=== PATIENT | male | born 1950 | race Caucasian/White ===

== ENCOUNTER 2023-11-20 05:18 | Inpatient (IN) | payer MEDICARE, OTHER, SELFPAY ==
[2023-11-20] VITALS (14 sets, daily range): BP systolic 152–230; BP diastolic 79–115; PULSE 60–80; RESP 12–24; TEMP 36.2–36.9; O2SAT 94–99; BMI 23.8
--- NOTE | 2023-11-20 05:32 | EKG_ITS ---
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
--- NOTE | 2023-11-20 05:47 | ED_ITS ---
HPI - Neuro Symptoms/Deficit General Stated Complaint: Possible Stroke Time Seen by Provider: 11/20/23 05:19 History of Present Illness HPI Narrative: 73-year-old male with history of hypertension presents by private vehicle from home for stroke-like symptoms. Patient noticed around 9:00 a.m. yesterday that he had some clumsiness and weakness of his right upper and lower extremities. Patient was seen at [facility] emergency department less than 12 hours ago, where he underwent CT brain imaging, CT angio head and neck imaging, full panel of laboratory work performed. He was offered admission, but informed that he had not have an MRI until at least Tuesday morning. Patient elected to go home with a daily aspirin, he declined a statin due to fear of side effects. At home patient noticed that his symptoms seem to be worsening again and so he came to [facility] to see if workup would be any different. He continues to have clumsiness in his right arm and right lower extremity. He states he feels like he may have a slight slurred in his speech. Exam Initial Vital Signs Initial Vital Signs: Const: Awake, alert, no acute distress, nontoxic appearing Cardiac: regular rate, regular rhythm RESP: unlabored, clear bilaterally, no wheezing GI: Soft, nontender, nondistended Skin: Warm, Dry, intact, no rashes Neuro: AO x3, mild right-sided facial droop, right upper extremity drift, does not touch bed, right lower extremity drift, does not touch bed, no ataxia, trace slur of speech. NIH 4 Course Orders Ordered: ED Orders 11/20/23 05:27 EKG-12 Lead Stat 11/20/23 05:40 CBC Auto Diff [Complete Blood Count AUTO DIFF] Stat CMP [Comprehensive Metabolic Panel] Stat PT [Prothrombin Time INR] Stat TSH [Thyroid Stimulating Hormone] Stat Discontinued Medications Aspirin (Aspirin Ec 325 Mg Tablet) 325 mg PO NOW ONE Stop: 11/20/23 05:34 MDM - Neuro Symptoms/Deficit Differential Diagnosis Differential diagnosis: Likely peripheral neuropathy, cerebrovascular accident and multiple sclerosis Lab Data 11/20/23 05:40 11/20/23 05:40 Labs: Lab Results 11/20/23 Range/Units 05:40 WBC 7.3 (4.5-11.0) X10^3/uL RBC 4.82 (4.5-5.9) X10^6/uL Hgb 15.6 (13.5-17.5) g/dL Hct 45.4 (41-53) % MCV 94.3 (80-100) fL MCH 32.3 (26-34) PG MCHC 34.3 (30-36) % RDW 13.2 (11.6-14.8) % Plt Count 349 (150-400) X10^3/uL Neut % (Auto) 73.1 (50-75) % Lymph % (Auto) 18.2 L (25-40) % [place] % (Auto) 6.8 (3-14) % Eos % (Auto) 1.3 L (2-4) % Baso % (Auto) 0.6 (0-2) % Neut # (Auto) 5400 (3442-9247) /uL Lymph # (Auto) 1300 (1102-2866) /uL [place] # (Auto) 500 (0-900) /uL Eos # (Auto) 100 (0-450) /uL Baso # (Auto) 0 (0-100) /uL PT 11.4 (9.4-12.5) SECONDS INR 1.0 (0.9-1.3) Sodium 133 L (137-145) mmol/L Potassium 3.4 (3.4-5.1) mmol/L Chloride 97 L (98-107) mmol/L Carbon Dioxide 29 (22-32) mmol/L BUN 15 (9-20) mg/dL Creatinine 0.65 L (0.66-1.25) mg/dL Estimated GFR > 60 (>60) mL/min BUN/Creatinine Ratio 23.1 H (6-22) Glucose 125 H (80-110) mg/dL Calcium 9.5 (8.4-10.2) mg/dL Total Bilirubin 0.6 (0.2-1.3) mg/dL AST 27 (17-59) IU/L ALT 19 (<50) IU/L Alkaline Phosphatase 68 (38-126) U/L Total Protein 8.5 H (6.3-8.2) g/dL Albumin 4.9 (3.5-5.0) g/dL Globulin 3.6 (1.7-4.1) g/dL Albumin/Globulin Ratio 1.4 (1.0-2.8) TSH 1.44 (0.47-4.68) uIU/mL ECG Data Interpretation: Normal sinus rhythm at 81 beats per minute. Normal MO, no ST T wave changes, no STEMI MDM Narrative Medical decision making narrative: Patient presenting for repeat evaluation after likely undergoing CVA. Less than 12 hours ago patient underwent CT brain and CT angio imaging at [facility], which shares our PACS system. He took aspirin yesterday but none today, and so a full-dose aspirin was ordered. Patient accepted for observation at this time. Blood pressure elevated, but less than 220/110. We will allow for permissive hypertension in setting of possible acute CVA Discharge Plan Departure Patient Disposition: Admitted as Observation Clinical Impression: Acute right-sided weakness Admit Date/Time: 11/20/23 06:45 Admit Provider: Cipriano Ballard
[2023-11-20 05:48] LABS: Add Manual Diff / Slide Review NO; Basophils Absolute Auto 0 /uL (0-100); Basophils Percent Auto 0.6 % (0-2); Eosinophils Absolute Auto 100 /uL (0-450); Eosinophils Percent Auto 1.3 % (2-4); Hematocrit 45.4 % (41-53); Hemoglobin 15.6 g/dL (13.5-17.5); Lymphocytes Absolute Auto 1300 /uL (1100-4500); Lymphocytes Percent Auto 18.2 % (25-40); Mean Corpuscular HGB Conc 34.3 % (30-36); Mean Corpuscular Hemoglobin 32.3 PG (26-34); Mean Corpuscular Volume 94.3 fL (80-100); Monocytes Absolute Auto 500 /uL (0-900); Monocytes Percent Auto 6.8 % (3-14); Neutrophils Absolute Auto 5400 /uL (1500-7000); Neutrophils Percent Auto 73.1 % (50-75); Platelet Count 349 X10^3/uL (150-400); Red Blood Cell Count 4.82 X10^6/uL (4.5-5.9); Red Cell Distribution Width 13.2 % (11.6-14.8); White Blood Cell Count 7.3 X10^3/uL (4.5-11.0)
[2023-11-20 05:59] LABS: Prothrombin Time 11.4 SECONDS (9.4-12.5)
[2023-11-20 06:05] LABS: Alanine Aminotransferase 19 IU/L (<50); Albumin 4.9 g/dL (3.5-5.0); Albumin Globulin Ratio 1.4 (1.0-2.8); Alkaline Phosphatase 68 U/L (38-126); Aspartate Aminotransferase 27 IU/L (17-59); BUN Creatinine Ratio 23.1 (6-22); Bilirubin Total 0.6 mg/dL (0.2-1.3); Blood Urea Nitrogen 15 mg/dL (9-20); Calcium 9.5 mg/dL (8.4-10.2); Carbon Dioxide 29 mmol/L (22-32); Chloride 97 mmol/L (98-107); Estimated Glomerular Filt Rate > 60 mL/min (>60); Globulin 3.6 g/dL (1.7-4.1); Glucose 125 mg/dL (80-110); HEMOLYSIS < 15 (0-50); Potassium 3.4 mmol/L (3.4-5.1); Sodium 133 mmol/L (137-145); Total Protein 8.5 g/dL (6.3-8.2)
[2023-11-20 06:45] LABS: Thyroid Stimulating Hormone 1.44 uIU/mL (0.47-4.68)
--- NOTE | 2023-11-20 06:57 | DI.ECHO.S_ITS ---
[facility] : : [address] : : [place] : : [id number] : : Phone: [phone] Echocardiogram Report + + :Name: PHU ORANTES Study Date: 11/20/2023 Height: 62 in : [facility] : Weight: 126 lb : : Gender: Male BSA: 1.6 m2 : :: 1950 Age: 73 yrs BP: 172/103 mmHg: :Reason For Study: SUSPECTED STROKE : :Ordering Physician: : :Urmila SONGformed By: Arvind Junior : :MD : :Referring: UNSPECIFIED : + + Interpretation Summary The patient was in sinus rhythm with heart rates between 68-80 bpm during the exam. The left ventricle is normal in size and wall thickness. The left ventricular ejection fraction is normal. The ejection fraction is estimated to be 60-65%. The right ventricle is normal size. The right ventricular systolic function is normal. No significant valvular pathology seen. The IVC is of normal diameter and collapses greater than 50% with a sniff. This suggests a low right atrial pressure of 3 mm Hg. Procedure: A two-dimensional transthoracic echocardiogram with color flow and Doppler was performed. The study quality was technically adequate. There is no prior echocardiogram noted for this patient. The patient was in sinus rhythm with heart rates between 68-80 bpm during the exam. Left Ventricle: The left ventricle is normal in size and wall thickness. There is no thrombus. The ejection fraction is estimated to be 60-65%. The left ventricular ejection fraction is normal. There are no focal wall motion abnormalities. Diastolic parameters suggest a relaxation abnormality of the left ventricle, consistent with probable normal filling pressures. Right Ventricle: The right ventricle is normal size. The right ventricular systolic function is normal. Atria: The left atrial size is normal. Right atrial size is normal. The interatrial septum grossly appears intact with no obvious evidence for an atrial septal defect. Mitral Valve: There is mild mitral annular calcification. There is systolic anterior motion of the chordal apparatus. There is no mitral valve stenosis. There is trace mitral regurgitation. Aortic Valve: The aortic valve is grossly normal. The aortic valve is mildly calcified. The aortic valve is trileaflet. There is no aortic valve stenosis. There is trace aortic regurgitation. Tricuspid Valve: The tricuspid valve is normal. There is no tricuspid stenosis. There is trace tricuspid regurgitation. The right ventricular systolic pressure is estimated to be at least 22 mmHg based on an estimated right atrial pressure of 3 mm Hg. Pulmonic Valve: The pulmonic valve is not well visualized. There is no pulmonic valvular stenosis. There is no pulmonic valvular regurgitation. Great Vessels: The aortic root is normal size. The ascending aorta could not be visualized. The IVC is of normal diameter and collapses greater than 50% with a sniff. This suggests a low right atrial pressure of 3 mm Hg. Pericardium/ Pleura There is no pericardial effusion. There is no pleural effusion. MMode/2D Measurements & Calculations LVIDd: 3.9 cm LVOT diam: 1.9 cm LVIDs: 2.2 cm Ao root diam: 3.2 cm FS: 43.8 % Ao Arch Diam (Prox Trans): 2.4 cm IVSd: 1.1 cm LVPWd: 0.95 cm LV kimball. diameter/BSA (cm/m^2): 2.5 LV sys. diameter/BSA (cm/m^2): 1.4 LA A2 area: 11.0 cm2 RA long axis: 4.4 cm LA A4 area: 11.3 cm2 RA area: 12.9 cm2 LA length (vol): 4.4 cm RA vol: 32.4 ml LA vol: 24.1 ml RA : 20.6 ml/m2 LA vol index: 15.4 ml/m2 IVC diam: 1.4 cm RVD1 (basal): 3.4 cm RVD2 (mid): 3.2 cm TAPSE: 2.9 cm Doppler Measurements & Calculations Ao V2 max: 103.3 cm/sec LVOT Max Memo: 83.7 cm/sec Ao V2 mean: 70.4 cm/sec LV V1 max P.8 mmHg Ao max P.3 mmHg LV V1 VTI: 17.0 cm Ao mean P.2 mmHg JORDAN(I,D): 2.4 cm2 Ao V2 VTI: 20.1 cm JORDAN(V,D): 2.3 cm2 sev ratio: 0.85 JORDAN indexed to BSA (cm^2/m^2): 1.5 MV E max memo: 56.2 cm/sec TR max memo: 215.8 cm/sec MV A max memo: 74.7 cm/sec TR max P.6 mmHg MV E/A: 0.75 PA V2 max: 81.8 cm/sec Med Peak E' Memo: 6.6 cm/sec PA V2 mean: 56.0 cm/sec E/E' med: 8.5 PA mean P.4 mmHg Lat Peak E' Memo: 9.9 cm/sec PA pr(Accel): 17.3 mmHg E/E' lat: 5.7 E/e' average: 7.1 MV dec time: 0.22 sec SV(LVOT): 48.5 ml Reading Physician:12:12 PM
--- NOTE | 2023-11-20 06:57 | DI.MRI.S_ITS ---
PROCEDURE: MR HEAD/BRAIN WO CON INDICATIONS: cva TECHNIQUE: Non-contrast axial T1 spin echo, axial T2 fast spin echo, sagittal and axial FLAIR, coronal T2 fast spin echo, axial gradient echo, axial diffusion and ADC through the brain. COMPARISON: None. FINDINGS: Image quality: Excellent. CSF spaces: Ventricles appear symmetric in size and shape. Basal cisterns are patent. No extra-axial fluid collections. Brain: Small area of diffusion restriction is seen at the posterior left basal ganglia and to periventricular region. No significant mass effect. No hemorrhagic conversion is seen. No other focus of abnormal diffusion restriction is seen. There is cerebral volume loss for age. There are periventricular and deep white matter chronic small vessel ischemic changes. Brainstem appears normal. Skull and face: Calvarial bone marrow is normal in signal. Orbits are normal. Sinuses: There is mucosal thickening and partial opacification of the bilateral ethmoid air cells and right frontal sinus. Mucous retention cysts are seen in the maxillary sinuses. No significant mastoid effusion. IMPRESSION: 1. Small area diffusion restriction in the left posterior basal ganglia/periventricular region is consistent with recent infarct. No significant mass effect or hemorrhagic conversion. 2. [id number]-tr-[id number] chronic likely vascular ischemic changes and generalized parenchymal volume loss. Approved by: Avery Ren M.D. on 11/20/2023 at 8:06
--- NOTE | 2023-11-20 07:21 | PM.HP.1 ---
History of Present Illness History of Present Illness Date Patient Seen: 11/20/23 Time Patient Seen: 07:00 Chief complaint: Possible Stroke Narrative: 73 y/o with PMH of HTN, developed sudden onset of rigt arm and leg weakness, 12 hours ago, went to [facility], had non-diagnostic CT head and discharged home but contiue to have right side numb and weak again. At presentation to ED at [place] he has right facial droop , right arm > Rt leg weakness. Placed in observation [facility] Social History Smoking Status: Never smoker Review of Systems Constitutional Comments: no fever or chills Eyes Comments: w/o vision changes Cardiovascular Comments: w/o palpitations or chest pain Respiratory Comments: w/o cough or shortness of breath Gastrointestinal Comments: w/o complaints Neurologic Comments: Right arm, right leg weakness, slurred speech Exam Vital Signs (past 8 hours): - 11/20/23 06:51 Oxygen Delivery Method Room Air Oxygen Delivery Method Room Air Const Other: sitting in bed in no distress, family at bedside HENMT Other: normocephalic Eyes Other: reactive pupils, EOMI Neck Other: supple Resp Other: normal respiratory effort Cardio Other: RRR GI Other: w/o abdominal distension Skin Other: w/o rashes Neuro Other: Rt hemiparesis, dysarthria, facial drrop Extrem Other: w/o swelling Psych Other: lucid Objective Labs 11/20/23 05:40 11/20/23 05:40 Labs: Laboratory Results - last 24 hr 11/20/23 05:40 WBC 7.3 RBC 4.82 Hgb 15.6 Hct 45.4 MCV 94.3 MCH 32.3 MCHC 34.3 RDW 13.2 Plt Count 349 Neut % (Auto) 73.1 Lymph % (Auto) 18.2 L [place] % (Auto) 6.8 Eos % (Auto) 1.3 L Baso % (Auto) 0.6 Neut # (Auto) 5400 Lymph # (Auto) 1300 [place] # (Auto) 500 Eos # (Auto) 100 Baso # (Auto) 0 PT 11.4 INR 1.0 Sodium 133 L Potassium 3.4 Chloride 97 L Carbon Dioxide 29 BUN 15 Creatinine 0.65 L Estimated GFR > 60 BUN/Creatinine Ratio 23.1 H Glucose 125 H Calcium 9.5 Total Bilirubin 0.6 AST 27 ALT 19 Alkaline Phosphatase 68 Total Protein 8.5 H Albumin 4.9 Globulin 3.6 Albumin/Globulin Ratio 1.4 TSH 1.44 Assessment & Plan Assessment and plan (1) TIA (transient ischemic attack): Status: Acute (2) HTN (hypertension): Status: Acute Assessment & Plan narrative: TIA vs CVA - MRI pending - echocardiogram pending - A1c, lipids, Mg pending - NS at 100 cc/h, hold Lisinopril/HCTZ for permissive HTN - telemetry monitoring - PT, OT, ST eval - given ASA HTN - Lisinopril/HCTz 12.5 on hold - NS at 100 for now DVT prophylaxis - Lovenox Time-Based Coding :: [TOTAL MINUTES] spent with patient and on the chart (including review of chart, obtaining history, exam, reviewing outside data, placing orders, documenting exam and treatment plan, and counseling patient) on [DATE].
[2023-11-20 08:10] LABS: Add Manual Diff / Slide Review NO; Basophils Absolute Auto 300 /uL (0-100); Basophils Percent Auto 3.3 % (0-2); Eosinophils Absolute Auto 0 /uL (0-450); Eosinophils Percent Auto 0.3 % (2-4); Hematocrit 44.1 % (41-53); Hemoglobin 15.2 g/dL (13.5-17.5); Lymphocytes Absolute Auto 900 /uL (1100-4500); Lymphocytes Percent Auto 9.4 % (25-40); Mean Corpuscular HGB Conc 34.6 % (30-36); Mean Corpuscular Hemoglobin 32.4 PG (26-34); Mean Corpuscular Volume 93.7 fL (80-100); Monocytes Absolute Auto 500 /uL (0-900); Monocytes Percent Auto 5.5 % (3-14); Neutrophils Absolute Auto 7600 /uL (1500-7000); Neutrophils Percent Auto 81.5 % (50-75); Platelet Count 353 X10^3/uL (150-400); Red Cell Distribution Width 13.3 % (11.6-14.8); White Blood Cell Count 9.4 X10^3/uL (4.5-11.0)
[2023-11-20 08:19] LABS: BUN Creatinine Ratio 22.8 (6-22); Blood Urea Nitrogen 13 mg/dL (9-20); Calcium 9.1 mg/dL (8.4-10.2); Carbon Dioxide 27 mmol/L (22-32); Chloride 98 mmol/L (98-107); Estimated Glomerular Filt Rate > 60 mL/min (>60); Glucose 105 mg/dL (80-110); Magnesium 2.1 mg/dL (1.6-2.3); Potassium 3.4 mmol/L (3.4-5.1); Sodium 132 mmol/L (137-145)
--- NOTE | 2023-11-20 08:30 | PC.NURSE ---
Pt states symptoms feel same as earlier.
--- NOTE | 2023-11-20 08:34 | PC.NURSE ---
Pt reports minor 2/10 SMITH on left side and states he has consistent stroke like symptoms since yesterday. Pt states he was seen at another hospital yesterday for same medical concern.
[2023-11-20 08:37] LABS: Hemoglobin A1C% w Est Avg Glu 5.3 % (4.0-6.0)
[2023-11-20 08:38] LABS: HEMOLYSIS 57 (0-50)
--- NOTE | 2023-11-20 08:55 | PC.NURSE ---
Attempted to contact to address ASA ordered prior to shift change and MRI result; no answer.
[2023-11-20] MEDS: SODIUM CHLORIDE 0.9% 1,000 ML 100 ML IV ×2 (09:38→18:25)
[2023-11-20 09:43] LABS: Cholesterol 224 mg/dL (140-199); HDL Cholesterol 83 mg/dL (40-60); LDL Cholesterol Calculated 129 mg/dL (<100); Triglycerides 59 mg/dL (35-150)
--- NOTE | 2023-11-20 10:41 | PC.NURSE ---
PT arrived from ED in wheelchair at 0915, 1x assist on affected (R side) to get into bed. Very hypertensive but otherwise VSS, Dr. Ng aware, q 30min vitals initiated for additional monitoring. A&Ox4, no c/o pain. Weakness and heaviness to R side of body. R arm with slightly decreased sensation, no difference between leg sensation bilaterally. Bowel sounds present, lung sounds CTA. Pt and family at bedside oriented to room and call light. Bed in low position, SCDs on, call light within reach.
[2023-11-20] MEDS: POTASSIUM CHLORIDE 20 MEQ TAB 40 MEQ PO (12:07)
[2023-11-20] MEDS: ENOXAPARIN 40 MG/0.4 ML SYRINGE SUBCUT (12:10)
--- NOTE | 2023-11-20 12:30 | PT.IIE ---
Addendum entered and electronically signed by Alexa Mueller PT 11/21/23 10:10: Duplicate evaluation, issue with doctor assignment after student did eval Addendum entered and electronically signed by Alexa Mueller PT 11/20/23 12:56: PT provides direct superv during SPT assessment Original Note: Current Diagnoses Transient cerebral ischemic attack, unspecified (11/20/23) Essential (primary) hypertension (11/20/23) Physical Therapy Inpatient Evaluation/Re-Eval M1 PT/OT-IP Prior Functional Status Start: 11/20/23 08:27 Freq: NEEDED Status: Active Protocol: Document 11/20/23 10:53 LUANN (Rec: 11/20/23 12:29 LUANN [id number]) Medical Review Prior Functional Status Medical History Reviewed Yes Diet/Fluid Consistency Regular Communication WNL Mobility and Gait Performed all mobility and gait I without AD Activities of Daily Living and IADL's I with all ADL's without AD Social History Household Members spouse Living Arrangements House Number of Floors (Floors) One Floor Number of Stairs To Enter/Railing? 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 PT-IP Subjective Start: 11/20/23 08:27 Freq: NEEDED Status: Active Protocol: Document 11/20/23 10:53 LUANN (Rec: 11/20/23 12:29 LUANN [id number]) Subjective Physical Therapy Visit Type Type Initial Evaluation Visit Start Time 10:53 Visit Stop Time 11:23 Number of MARKET SUPERINTENDENT Visits 0 Physical Therapy Visit Comments Patient Comments Pt was in good spirits and agreeable to PT M4 PT-IP Mobility and Gait Start: 11/20/23 08:27 Freq: NEEDED Status: Active Protocol: Document 11/20/23 10:53 LUANN (Rec: 11/20/23 12:29 LUANN [id number]) PT-Bed Mobility Assessment Rolling Type of Rolling Roll to Left Level of Assist Independent Supine to Sit Supine to Sit Independent Scooting Scooting to Edge of Bed Independent PT-Transfer Assessment Sit to and From Stand Sit to and from Stand Contact Guard Assistance,1 Person Assistance Equipment Transfer Assistive Device Gait Belt,Front Wheeled Walker Orthotic/Prosthetic Devices or Brace: No Transfers Transfer Destination Chair Transfer Technique Ambulation Transfer Ability Level of Assist Minimal Assistance,1 Person Assistance,Use of Upper Extremities Comments Mobility Comments Pt was impulsive with transfer movements. Pt stood up while PT was grabbing FWW. BP was taken on L UE supine: 193/102, 70, seated EOB: 184/103, 82, standin/103, 81. Nsg/MD aware of high BPs in setting of ongoing increased brain perfusion post-stroke. Gait Assessment Gait Gait Assistance Required: Minimum Assistance,1 Person Assist Distance (Feet) 3 Able to Maintain Weight Bearing Status Yes During Gait Assistive Devices Assistive Device Gait Belt,Front Wheeled Walker Orthotic/Prosthetic Devices or Brace: No Gait Deviations General Gait Pattern Ataxic,Decreased Stride Length ,Decreased Feet Clearance, Narrow Based Gait,Step-to Gait Factors Limiting Gait Function Factors Limiting Gait Function Abnormal Tonal Influences, Decreased Activity Tolerance, Decreased Strength,Difficulty Following Directions, Incoordination,Poor Balance, Poor Safety Awareness Comments Gait Comments Pt had unsteadiness with moving using FWW and had lost balance while trying to back up with FWW PT had hand on gait belt to assist. Pt is initially hip hiking with right hip with knee flexion to help clear foot. Longer gait assessment in treatments will show functional foot drop or not, but does appear possible during assessment today. PT-Balance Assessment Sitting Balance and Reactions Static Sitting Balance Ability Normal Dynamic Sitting Balance Ability Good Standing Balance and Reactions Static Standing Balance Ability Good Dynamic Standing Balance Ability Good Device Used FWW M5 PT-IP Objective Assessments Start: 11/20/23 08:27 Freq: NEEDED Status: Active Protocol: Document 11/20/23 10:53 LUANN (Rec: 11/20/23 12:29 LUANN [id number]) Orientation Orientation/Cognition Level of Alertness Alert Orientation Name,Age,Birthday,Month,Date, Year,Day of Week,Place, Situation Language Function Ability No Deficits Noted Safety Awareness Decreased Safety Awareness Memory Description No Deficits Noted Comments Pt answered date incorrectly ( November 23) Gross Range of Motion Upper Extremity ROM Assessment Right Impaired Impairments Right hand appears to rest in flexion and may have decresased finger extension, OT to see pt tomorrow Lower Extremity ROM Assessment Right Impaired Impairments May lack full great toe extension mildly Strength Upper Extremity Strength Assessment Within Functional Limits Shoulder R 4-/5 L 4+/5 Elbow R 4-/5 L 4+/5 Lower Extremity Strength Assessment Within Functional Limits Knee R 4-/5 L 4+/5 Ankle R 4-/5 L 5/5 Comments Strength Comments Pt had global weakness in R U& L extremities, great toe extension left 4+/5 on the left and 4-/5 on the right. Coordination Assessment Gross Coordination Gross Coordination Impaired Assessment Finger to Nose Test Severe Impairment Pronation/Supination Test Severe Impairment Foot Tapping Test Minimal Impairment Heel on Kimball Test Minimal Impairment Coordination Comments Coordination testing is weaker on R>L on all assessment activities Sensation Assessment Sensation Gross Sensation WNL Light Touch Intact Muscle Tone Muscle Tone WNL Yes Other Assessments Other Other Assessments Need more time to assess: initially, right anterior tib appeared less defined than the left M6 PT-IP Treatment Start: 11/20/23 08:27 Freq: NEEDED Status: Active Protocol: Document 11/20/23 10:53 JG (Rec: 11/20/23 12:29 J [id number]) Physical Therapy Treatment Exercises Exercises Ankle Pumps,Straight Leg Raises Education Education Provided Precautions,Safety M7 PT-IP Assessment and Plan Start: 11/20/23 08:27 Freq: NEEDED Status: Active Protocol: Document 11/20/23 10:53 JG (Rec: 11/20/23 12:29 [place] [id number]) PT Summary Assessment and Plan Potential Rehabilitation Potential Excellent Status of Condition at Evaluation Evolving Summary Impairments Strength,Balance,Coordination, Transfers,Gait,Activity Tolerance Progress Towards Goals Progressing Toward Goals Assessment Summary Pt is a 73 y/o male that presents with L basal ganglia infarct. He was I at baseline. Pt has global weakness in R UE/LE and severe coordination deficits with R UE and mild deficits with R LE. Strength impairment is also more noticeable distal right UE compared to LE today. Pt demonstrated facial drooping on R side of face and some slurred speech. Pt is currently hypertensive and 21 mmHg drop in systolic BP with change in positions during PT and diastolic BP stayed about the same throughout treatment. Nsg reports perfusion is a concern post-stroke and so BP not being medically assisted to drop too quickly. Pt had a spouse and family located beside him during treatment today. Ed pt and family in acute vs acute rehab vs SNF vs HH vs OPPT levels of care and rehab and PT recommendation of acute rehab at d/c since pt was I and right-handed at baseline. Goals Transfer Goal Independent,Cane,Front Wheeled Walker Gait Goal Independent,Cane,Front Wheel Walker Gait Distance 95 Other Goals Pt will be able to ascend and desend 2 stairs without AD in order to mimic home set-up with no more than CGA. Pt will perform WNLs on standardized balance test with or without AD to decrease fall risk. Days to Meet Goals 5 Frequency of Treatment Frequency Of Treatment Once a Day Treatment Plan Physical Therapy Treatment Plan Transfer Training,Gait Training,Therapeutic Exercise, Balance Retraining,Discharge Planning,Hot or Cold Pack, Neuromuscular Re-ed, Coordination Retraining Other Recommendations and Next Treatment Focus on gait tolerance, Focus sitting and standing, using FWW, balance activities, UE/LE coordination activities, gait training and stair training Weight Bearing Status Weight Bearing Status Weight Bear as Tolerated Recommendations To Nursing Amount of Assist Needed 1 Person Assist Discharge Recommendations PT Discharge Recommendations Acute Rehab Transportation Needs at Discharge Private Vehicle
--- NOTE | 2023-11-20 12:42 | PM.HP.1 ---
History of Present Illness History of Present Illness Date Patient Seen: 11/20/23 Time Patient Seen: 11:00 Chief complaint: Possible Stroke Narrative: From night doctor: 73 y/o with PMH of HTN, developed sudden onset of rigt arm and leg weakness, 12 hours ago, went to [facility], had non-diagnostic CT head and discharged home but contiue to have right side numb and weak again. At presentation to ED at [place] he has right facial droop , right arm > Rt leg weakness. Placed in observation S: The patient is fairly healthy at baseline other than hypertension. He takes hydrochlorothiazide for this. The patient was admitted with right-sided hemiparesis. An MRI was completed in the emergency department and did reveal a left basal ganglia infarct. The patient was no history of TIA or stroke. He notes his blood pressures are usually between 130 and 140 systolic and under 90 diastolic. He does not take aspirin chronically, and has a great resistance to a statin due to thinks he is heard about these medications causing untoward side effects. He does have mild weakness of the right arm and leg upon transfer to the floor his well as a right-sided facial droop. His speech is normal. He denies a headache. He was hypertensive at 198 over 90. He does not smoke. [facility] Social History household members: spouse Smoking Status: Never smoker alcohol intake: current Meds Home Medications and Allergies Home Medications Medication Instructions Recorded Confirmed Type lisinopril 10 1 tab PO DAILY 11/20/23 11/20/23 History mg-hydrochlorothiazide 12.5 mg tablet Allergies Allergy/AdvReac Type Severity Reaction Status Date / Time No Known Drug Allergies Allergy Verified 11/20/23 08:51 Review of Systems Review of Systems Narrative: All else reviewed and otherwise unremarkable except as noted in the history and physical. Exam Vital Signs (past 8 hours): - 11/20/23 06:51 11/20/23 07:00 11/20/23 07:00 Temperature Pulse Rate 65 Respiratory Rate 20 Blood Pressure 180/88 H Pulse Oximetry 96 Oxygen Delivery Method Room Air Oxygen Flow Rate 11/20/23 08:00 11/20/23 08:03 11/20/23 08:03 Temperature Pulse Rate 69 73 Respiratory Rate 16 20 Blood Pressure 200/96 H Pulse Oximetry 96 98 Oxygen Delivery Method Room Air Oxygen Flow Rate 11/20/23 08:30 11/20/23 08:30 11/20/23 08:58 Temperature Pulse Rate 80 Respiratory Rate 24 Blood Pressure 230/115 H 205/102 H Pulse Oximetry 96 Oxygen Delivery Method Oxygen Flow Rate 11/20/23 08:58 11/20/23 09:15 11/20/23 09:30 Temperature 98.1 F Pulse Rate 74 76 Respiratory Rate 17 16 Blood Pressure 218/113 H Pulse Oximetry 94 97 Oxygen Delivery Method Room Air Oxygen Flow Rate 0 11/20/23 10:00 11/20/23 11:16 Temperature 98.4 F 98.5 F Pulse Rate 72 67 Respiratory Rate 16 12 Blood Pressure 181/97 H 193/102 H Pulse Oximetry 98 97 Oxygen Delivery Method Oxygen Flow Rate 0 0 Oxygen Delivery Method Room Air Oxygen Flow Rate 0 Narrative Exam Narrative: NAD, alert and oriented, fluent speech, calm. Normocephalic skull, EOMI, anicteric sclera, symmetric pupils. Oropharynx unremarkable, no droop. Neck supple, midline trachea, no adenopathy. Lungs clear, normal rate and effort. Heart regular, no murmur gallop or rub. Abdomen is soft, non distended and non tender. Extremities are free of edema. Skin is free of rash or lesions. Joints are not swollen or deformed. Judgment appears to be normal. Right arm and leg are weak at 4+ out of 5. There is a right facial droop. Objective ECG Impression: NSR Imaging MRI Brain:: Radiologist's impression: 1. Small area diffusion restriction in the left posterior basal ganglia/periventricular region is consistent with recent infarct. No significant mass effect or hemorrhagic conversion. 2. Dkew-hb-cediqion chronic likely vascular ischemic changes and generalized parenchymal volume loss Echo: Radiologist's impression: The patient was in sinus rhythm with heart rates between 68-80 bpm during the exam. The left ventricle is normal in size and wall thickness. The left ventricular ejection fraction is normal. The ejection fraction is estimated to be 60-65%. The right ventricle is normal size. The right ventricular systolic function is normal. No significant valvular pathology seen. The IVC is of normal diameter and collapses greater than 50% with a sniff. This suggests a low right atrial pressure of 3 mm Hg. Labs 11/20/23 08:02 07/14/24 08:02 Labs: Laboratory Results - last 24 hr 11/20/23 11/20/23 05:40 08:02 WBC 7.3 9.4 RBC 4.82 4.70 Hgb 15.6 15.2 Hct 45.4 44.1 MCV 94.3 93.7 MCH 32.3 32.4 MCHC 34.3 34.6 RDW 13.2 13.3 Plt Count 349 353 Neut % (Auto) 73.1 81.5 H Lymph % (Auto) 18.2 L 9.4 L [place] % (Auto) 6.8 5.5 Eos % (Auto) 1.3 L 0.3 L Baso % (Auto) 0.6 3.3 H Neut # (Auto) 5400 7600 H Lymph # (Auto) 1300 900 L [place] # (Auto) 500 500 Eos # (Auto) 100 0 Baso # (Auto) 0 300 H PT 11.4 INR 1.0 Sodium 133 L 132 L Potassium 3.4 3.4 Chloride 97 L 98 Carbon Dioxide 29 27 BUN 15 13 Creatinine 0.65 L 0.57 L Estimated GFR > 60 > 60 BUN/Creatinine Ratio 23.1 H 22.8 H Glucose 125 H 105 Hemoglobin A1c 5.3 Calcium 9.5 9.1 Magnesium 2.1 Total Bilirubin 0.6 AST 27 ALT 19 Alkaline Phosphatase 68 Total Protein 8.5 H Albumin 4.9 Globulin 3.6 Albumin/Globulin Ratio 1.4 Triglycerides 59 Cholesterol 224 H LDL Cholesterol, Calc 129 H HDL Cholesterol 83 H TSH 1.44 Assessment & Plan Assessment & Plan narrative: 1. 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 2. Hypertensive urgency, present on admission and active. 3. HLD, present on admission and active. Full code is proxy decision maker. Time-Based Coding :: 40 spent with patient and on the chart (including review of chart, obtaining history, exam, reviewing outside data, placing orders, documenting exam and treatment plan, and counseling patient) on 11/20/2023. Quality VTE Deep Vein Thrombosis/Pulmonary Embolism Present on Admission: No MIPS - Admit I confirm the patient?s Advance Care Plan is present, Code status is documented, Surrogate decision maker is in patient?s record [If Yes, STOP here]: Yes MIPS - Meds 'Current medications' to include all prescriptions, [id number] products, herbals, cannabis/cannabidiol products, and vitamin/mineral/dietary (nutritional) supplements. I have utilized all available resources to obtain, update, or review the patient?s current medications. [If Yes, STOP here]: Yes
--- NOTE | 2023-11-20 15:28 | PT.IIE ---
Addendum entered and electronically signed by Alexa Mueller PT 11/20/23 15:31: PT provides direct superv during SPT assessment Original Note: Current Diagnoses Transient cerebral ischemic attack, unspecified (11/20/23) Essential (primary) hypertension (11/20/23) Physical Therapy Inpatient Evaluation/Re-Eval M1 PT/OT-IP Prior Functional Status Start: 11/20/23 08:27 Freq: NEEDED Status: Active Protocol: Document 11/20/23 10:53 LUANN (Rec: 11/20/23 12:29 LUANN [id number]) Medical Review Prior Functional Status Medical History Reviewed Yes Diet/Fluid Consistency Regular Communication WNL Mobility and Gait Performed all mobility and gait I without AD Activities of Daily Living and IADL's I with all ADL's without AD Social History Household Members spouse Living Arrangements House Number of Floors (Floors) One Floor Number of Stairs To Enter/Railing? 2 Home Environment Standard Height Toilet,Tub/ Shower Employment Status Retired Additional Social History Comment Spouse and others were in room with pt upon PT arrival M2 PT-IP Current Condition Start: 11/20/23 08:27 Freq: NEEDED Status: Active Protocol: Document 11/20/23 10:53 LUANN (Rec: 11/20/23 12:29 LUANN [id number]) Physical Therapy Current Condition Current Condition Evaluation Date 11/20/23 Treatment Diagnosis L posterior basal ganglia/ periventricular infarct M3 PT-IP Subjective Start: 11/20/23 08:27 Freq: NEEDED Status: Active Protocol: Document 11/20/23 10:53 LUANN (Rec: 11/20/23 12:29 [place] [id number]) Subjective Physical Therapy Visit Type Type Initial Evaluation Visit Start Time 10:53 Visit Stop Time 11:23 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 Physical Therapy Visit Comments Patient Comments Pt was in good spirits and agreeable to PT M4 PT-IP Mobility and Gait Start: 11/20/23 08:27 Freq: NEEDED Status: Active Protocol: Document 11/20/23 10:53 LUANN (Rec: 11/20/23 12:29 LUANN [id number]) PT-Bed Mobility Assessment Rolling Type of Rolling Roll to Left Level of Assist Independent Supine to Sit Supine to Sit Independent Scooting Scooting to Edge of Bed Independent PT-Transfer Assessment Sit to and From Stand Sit to and from Stand Contact Guard Assistance,1 Person Assistance Equipment Transfer Assistive Device Gait Belt,Front Wheeled Walker Orthotic/Prosthetic Devices or Brace: No Transfers Transfer Destination Chair Transfer Technique Ambulation Transfer Ability Level of Assist Minimal Assistance,1 Person Assistance,Use of Upper Extremities Comments Mobility Comments Pt was impulsive with transfer movements. Pt stood up while PT was grabbing FWW. BP was taken on L UE supine: 193/102, 70, seated EOB: 184/103, 82, standin/103, 81. Nsg/MD aware of high BPs in setting of ongoing increased brain perfusion post-stroke. Gait Assessment Gait Gait Assistance Required: Minimum Assistance,1 Person Assist Distance (Feet) 3 Able to Maintain Weight Bearing Status Yes During Gait Assistive Devices Assistive Device Gait Belt,Front Wheeled Walker Orthotic/Prosthetic Devices or Brace: No Gait Deviations General Gait Pattern Ataxic,Decreased Stride Length ,Decreased Feet Clearance, Narrow Based Gait,Step-to Gait Factors Limiting Gait Function Factors Limiting Gait Function Abnormal Tonal Influences, Decreased Activity Tolerance, Decreased Strength,Difficulty Following Directions, Incoordination,Poor Balance, Poor Safety Awareness Comments Gait Comments Pt had unsteadiness with moving using FWW and had lost balance while trying to back up with FWW PT had hand on gait belt to assist. Pt is initially hip hiking with right hip with knee flexion to help clear foot. Longer gait assessment in treatments will show functional foot drop or not, but does appear possible during assessment today. PT-Balance Assessment Sitting Balance and Reactions Static Sitting Balance Ability Normal Dynamic Sitting Balance Ability Good Standing Balance and Reactions Static Standing Balance Ability Good Dynamic Standing Balance Ability Good Device Used FWW M5 PT-IP Objective Assessments Start: 11/20/23 08:27 Freq: NEEDED Status: Active Protocol: Document 11/20/23 10:53 [place] (Rec: 11/20/23 12:29 [place] [id number]) Orientation Orientation/Cognition Level of Alertness Alert Orientation Name,Age,Birthday,Month,Date, Year,Day of Week,Place, Situation Language Function Ability No Deficits Noted Safety Awareness Decreased Safety Awareness Memory Description No Deficits Noted Comments Pt answered date incorrectly ( November 23) Gross Range of Motion Upper Extremity ROM Assessment Right Impaired Impairments Right hand appears to rest in flexion and may have decresased finger extension, OT to see pt tomorrow Lower Extremity ROM Assessment Right Impaired Impairments May lack full great toe extension mildly Strength Upper Extremity Strength Assessment Within Functional Limits Shoulder R 4-/5 L 4+/5 Elbow R 4-/5 L 4+/5 Lower Extremity Strength Assessment Within Functional Limits Knee R 4-/5 L 4+/5 Ankle R 4-/5 L 5/5 Comments Strength Comments Pt had global weakness in R U& L extremities, great toe extension left 4+/5 on the left and 4-/5 on the right. Coordination Assessment Gross Coordination Gross Coordination Impaired Assessment Finger to Nose Test Severe Impairment Pronation/Supination Test Severe Impairment Foot Tapping Test Minimal Impairment Heel on Kimball Test Minimal Impairment Coordination Comments Coordination testing is weaker on R>L on all assessment activities Sensation Assessment Sensation Gross Sensation WNL Light Touch Intact Muscle Tone Muscle Tone WNL Yes Other Assessments Other Other Assessments Need more time to assess: initially, right anterior tib appeared less defined than the left M6 PT-IP Treatment Start: 11/20/23 08:27 Freq: NEEDED Status: Active Protocol: Document 11/20/23 10:53 JG (Rec: 11/20/23 12:29 J [id number]) Physical Therapy Treatment Exercises Exercises Ankle Pumps,Straight Leg Raises Education Education Provided Precautions,Safety M7 PT-IP Assessment and Plan Start: 11/20/23 08:27 Freq: NEEDED Status: Active Protocol: Document 11/20/23 10:53 JG (Rec: 11/20/23 12:29 J [id number]) PT Summary Assessment and Plan Potential Rehabilitation Potential Excellent Status of Condition at Evaluation Evolving Summary Impairments Strength,Balance,Coordination, Transfers,Gait,Activity Tolerance Progress Towards Goals Progressing Toward Goals Assessment Summary Pt is a 73 y/o male that presents with L basal ganglia infarct. He was I at baseline. Pt has global weakness in R UE/LE and severe coordination deficits with R UE and mild deficits with R LE. Strength impairment is also more noticeable distal right UE compared to LE today. Pt demonstrated facial drooping on R side of face and some slurred speech. Pt is currently hypertensive and 21 mmHg drop in systolic BP with change in positions during PT and diastolic BP stayed about the same throughout treatment. Nsg reports perfusion is a concern post-stroke and so BP not being medically assisted to drop too quickly. Pt had a spouse and family located beside him during treatment today. Ed pt and family in acute vs acute rehab vs SNF vs HH vs OPPT levels of care and rehab and PT recommendation of acute rehab at d/c since pt was I and right-handed at baseline. Goals Transfer Goal Independent,Cane,Front Wheeled Walker Gait Goal Independent,Cane,Front Wheel Walker Gait Distance 95 Other Goals Pt will be able to ascend and desend 2 stairs without AD in order to mimic home set-up with no more than CGA. Pt will perform WNLs on standardized balance test with or without AD to decrease fall risk. Days to Meet Goals 5 Frequency of Treatment Frequency Of Treatment Once a Day Treatment Plan Physical Therapy Treatment Plan Transfer Training,Gait Training,Therapeutic Exercise, Balance Retraining,Discharge Planning,Hot or Cold Pack, Neuromuscular Re-ed, Coordination Retraining Other Recommendations and Next Treatment Focus on gait tolerance, Focus sitting and standing, using FWW, balance activities, UE/LE coordination activities, gait training and stair training Weight Bearing Status Weight Bearing Status Weight Bear as Tolerated Recommendations To Nursing Amount of Assist Needed 1 Person Assist Discharge Recommendations PT Discharge Recommendations Acute Rehab Transportation Needs at Discharge Private Vehicle
--- NOTE | 2023-11-20 23:52 | PC.NURSE ---
Patient is alert and oriented. Has NIH of 5 related to right UE/LE weakness/numbness, inability to make fist with right hand and ataxia in right UE. Additionally some of his words are slurred. Breath sounds CTA with RA sat of 98%. HRR w/telemetry reading of SR with 1st degree AVB. BP elevated at 152/79 and just rechecked and was 172/95 but is being allowed permissive hypertension. Denied nausea. BT present but hypoactive; states he has a BM every morning after drinking his coffee. Is voiding standing in front of [facility]; assisted to edge of bed with 1 assist + walker due to right extremity weakness. Denied pain. Is wearing bilateral calf SCD's. Fall risk score is high and bed alarm is activated. rooming in.
[2023-11-21 03:00] VITALS: BP 181/96; PULSE 61; RESP 18; TEMP 36.8; O2SAT 97
[2023-11-21] MEDS: SODIUM CHLORIDE 0.9% 1,000 ML 100 ML IV (04:02)
[2023-11-21 06:27] LABS: Blood Urea Nitrogen 10 mg/dL (9-20); Calcium 8.2 mg/dL (8.4-10.2); Carbon Dioxide 26 mmol/L (22-32); Chloride 105 mmol/L (98-107); Estimated Glomerular Filt Rate > 60 mL/min (>60); Glucose 109 mg/dL (80-110); HEMOLYSIS < 15 (0-50); Potassium 3.3 mmol/L (3.4-5.1); Sodium 135 mmol/L (137-145)
[2023-11-21 07:00] VITALS: BP 191/94; PULSE 70; RESP 20; TEMP 36.6; O2SAT 95
--- NOTE | 2023-11-21 07:37 | PM.PN.1 ---
Subjective Subjective Interval history: Right arm is weaker today. The leg is doing better. He still has a droop and a slurred speech. She denies any headache. He was being evaluated for inpatient rehab at [facility]. Exam Vital Signs (past 8 hours): - 11/21/23 03:00 Temperature 98.3 F Pulse Rate 61 Respiratory Rate 18 Blood Pressure 181/96 H Pulse Oximetry 97 Oxygen Flow Rate 0 Oxygen Delivery Method Room Air Oxygen Flow Rate 0 Narrative Exam Narrative: NAD, alert and oriented. Fluent speech. Lungs are clear, normal rate and effort. Heart is regular, no murmur gallop or rub. Abdomen is soft, non distended. Extremities are free of edema. NEURO: Facial droop, slurred speech. Right arm is weak. He can lift it against gravity and up and there at the shoulder but has a hard time flexing and extending at the wrist or elbow. Minimal movement of the hand. He can lift the right leg up straight for approximately 5-7 seconds. Objective Labs 11/20/23 08:02 11/21/23 05:25 Labs: Laboratory Results - last 24 hr 11/20/23 11/20/23 11/21/23 05:40 08:02 05:25 WBC 9.4 RBC 4.70 Hgb 15.2 Hct 44.1 MCV 93.7 MCH 32.4 MCHC 34.6 RDW 13.3 Plt Count 353 Neut % (Auto) 81.5 H Lymph % (Auto) 9.4 L [place] % (Auto) 5.5 Eos % (Auto) 0.3 L Baso % (Auto) 3.3 H Neut # (Auto) 7600 H Lymph # (Auto) 900 L [place] # (Auto) 500 Eos # (Auto) 0 Baso # (Auto) 300 H Sodium 132 L 135 L Potassium 3.4 3.3 L Chloride 98 105 Carbon Dioxide 27 26 BUN 13 10 Creatinine 0.57 L 0.50 L Estimated GFR > 60 > 60 BUN/Creatinine Ratio 22.8 H 20.0 Glucose 105 109 Hemoglobin A1c 5.3 Calcium 9.1 8.2 L Magnesium 2.1 Triglycerides 59 Cholesterol 224 H LDL Cholesterol, Calc 129 H HDL Cholesterol 83 H PFSH Social History household members: spouse Smoking Status: Never smoker alcohol intake: current Assessment & Plan Assessment & Plan narrative: 1. 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 2. Hypertensive urgency, present on admission and active. 3. HLD, present on admission and active. 4. Hypokalemia, new and active. PLAN: -21 days DAPT, Atorvastatin. -PT,OT evaluations. -serial neuro exam. -replace potassium - Referred for inpatient acute rehab at [facility]. Awaiting their evaluation and answer. Full code is proxy decision maker. CITLALLI: 11/21, possibly 11/20. . Time-Based Coding :: 30 min spent with patient and on the chart (including review of chart, obtaining history, exam, reviewing outside data, placing orders, documenting exam and treatment plan, and counseling patient) on 11/20. Quality VTE Deep Vein Thrombosis/Pulmonary Embolism Present on Admission: No
[2023-11-21] MEDS: ENOXAPARIN 40 MG/0.4 ML SYRINGE SUBCUT (09:33)
[2023-11-21] MEDS: POTASSIUM CHLORIDE 20 MEQ TAB 40 MEQ PO (09:34)
[2023-11-21] MEDS: CLOPIDOGREL 75 MG TABLET PO (09:34)
[2023-11-21] MEDS: ASPIRIN EC 81 MG TABLET PO (09:34)
--- NOTE | 2023-11-21 10:32 | OT.IP.EVAL ---
Current Diagnoses Transient cerebral ischemic attack, unspecified (11/20/23) Essential (primary) hypertension (11/20/23) Occupational Therapy Inpatient Evaluation/Re-Eval M1 PT/OT-IP Prior Functional Status Start: 11/20/23 08:27 Freq: NEEDED Status: Active Protocol: Document 11/21/23 10:40 CGR (Rec: 11/21/23 10:56 CGR [id number]) Medical Review Prior Functional Status Medical History Reviewed Yes Diet/Fluid Consistency Regular Communication Pt is an effective verbal communicator. Mobility and Gait Performed all mobility and gait I without AD Activities of Daily Living and IADL's I with all ADL's without AD Social History Household Members spouse Living Arrangements House Number of Floors (Floors) One Floor Number of Stairs To Enter/Railing? 2 steps to enter without railing. Home Environment Standard Height Toilet,Tub/ Shower Employment Status Retired Additional Social History Comment Pt sleeps in a flat bed. Pt has no DME. M2 OT-IP Current Condition Start: 11/21/23 10:40 Freq: Status: Active Protocol: Document 11/21/23 10:40 CGR (Rec: 11/21/23 10:56 CGR [id number]) Occupational Therapy Current Condition Current Condition Evaluation Date 11/21/23 Treatment Diagnosis L CVA with R UE and LE weakness and facial droop. Diagnosis Onset Date 11/20/23 M3 OT- IP Subjective and Pain Start: 11/21/23 10:40 Freq: Status: Active Protocol: Document 11/21/23 10:40 CGR (Rec: 11/21/23 10:56 CGR [id number]) OT- Subjective Occupational Therapy Visit Type Type Initial Evaluation Visit Start Time 09:30 Visit Stop Time 09:45 Notes Rounds at 945 split session. Second half of session 1015- 1032. Occupational Therapy Visit Comments Patient Comments This was such a surprise. OT Pain Assessment Pain When Pain Assessed At Rest Pain Present Pain Present Denied Pain M4 OT- IP ADL's Start: 11/21/23 10:40 Freq: Status: Active Protocol: Document 11/21/23 10:40 CGR (Rec: 11/21/23 10:56 CGR [id number]) OT [id number] Comments OT Self-Feeding Comments not meal time OT ADL-Grooming General Evaluation Grooming Ability Standby Assistance Areas Needing Assistance Face Washing Comments OT Grooming Comments seated in chair OT ADL-Oral Care General Eval Oral Care Ability Standby Assistance Areas of Assistance Brushing Teeth,Retrieving/Set- Up of Items Comments Oral Care Comments with VC on putting the brush down and using his L hand to get toothpaste onto the brush. OT ADL-Dressing General Eval Lower Body Dressing Ability Minimal Assistance Areas Needing Assistance Socks Comments OT Dressing Comments Pt was able to doff socks without assist but needed min a to don socks with difficulty . OT ADL-Toileting Comments OT Toileting Comments not performed OT ADL-Bathing Comments OT Bathing Comments not performed M5 OT- IP IADL's Start: 11/21/23 10:40 Freq: Status: Active Protocol: Document 11/21/23 10:40 CGR (Rec: 11/21/23 10:56 CGR [id number]) OT-Instrumental Activities of Daily Living Deficits IADL Deficits Identified No Deficits Home Safety Awareness Awareness of Need for Assistance at Home Good Awareness Ability to Problem Solve Emergency Able to Problem Solve Situations Medication Management Medication Management No Deficits Identified Money Management Money Management No Deficits Identified Meal Preparation Meal Preparation Caregiver Provides Assist Molding Cutter Molding Cutter Caregiver Provides Assist Driving Driving Comments 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 M6 OT- IP Functional Cognition Start: 11/21/23 10:40 Freq: Status: Active Protocol: Document 11/21/23 10:40 CGR (Rec: 11/21/23 10:56 CGR [id number]) Cognitive Factors Limiting Selfcare Function Cognitive Ability Level of Alertness Alert Patient Orientation Name,Age,Birthday,Month,Date, Year,Day of Week,Place, Situation Attention Span Ability Capable of Focused Attention, Capable of Sustained Attention Ability to Follow Commands Able to Follow Multi-Step Commands Memory Description No Deficits Noted OT- Vision and Hearing OT- Hearing Assessment OT- Hearing Assessment WFL OT- Vision Assessment Visual Acuity WFL,Glasses All The Time Visual Attentiveness WFL Occular Pursuits WFL Visual Convergence WFL Vision Assessment Comments Pt wears trifocals. M7 OT- IP Mobility and Balance Start: 11/21/23 10:40 Freq: Status: Active Protocol: Document 11/21/23 10:40 CGR (Rec: 11/21/23 10:56 CGR [id number]) OT-Transfer Assessment Sit to and From Stand Sit to and from Stand Minimal Assistance Transfers Transfer Ability Minimal Assistance Technique Transfer Destination Chair Transfer Technique Stand Step Pivot Devices Transfer Assistive Devices Gait Belt,Front Wheeled Walker Comments Mobility Comments Pt was able to ambulate ~8 feet, then turn around then 8 feet back. Pt with abnormal gait patterns d/t RLE weakness but good strength for standing. OT- Gait Assessment Gait Gait Assistance Required: Minimum Assistance Distance (Feet) 16 Assistive Devices Assistive Device Gait Belt,Front Wheeled Walker Comments Gait Ability Comments Pt needs some assist to maintain R hand on walker but is able to minimally pipefitter helper. OT- Balance Assessment Sitting Balance and Reactions Static Sitting Balance Ability Normal Dynamic Sitting Balance Ability Normal M8 OT- IP Objective Assessments Start: 11/21/23 10:40 Freq: Status: Active Protocol: Document 11/21/23 10:40 CGR (Rec: 11/21/23 10:56 CGR [id number]) OT Gross Range of Motion Upper Extremity Range of Motion Assessment Within Functional Limits OT Strength Upper Extremity Strength Assessment Right Impaired Comments Strength Comments LUE 5+/5 RUE shld 3/5, arm 3/5, forearm 3/5, wrist fx/ext 3/5, finger fx 3/5, finger ext 2/5 OT- Coordination Assessment Upper Extremity Finger to Nose Test Right UE Impaired Finger Tapping Test Right UE Impaired OT-Muscle Tone Assessment Muscle Tone WNL Yes OT Sensation Assessment Comments Summary Comments sensation normal Edema Edema Absent M9 OT- IP Assessment and Plan Start: 11/21/23 10:40 Freq: Status: Active Protocol: Document 11/21/23 10:40 CGR (Rec: 11/21/23 10:56 CGR [id number]) OT Summary Assessment and Plan Potential Rehabilitation Potential Excellent Analytic Complexity at Evaluation High Summary OT Impairments Strength,Balance,Coordination, Functional Mobility,Self- Feeding,Grooming,Dressing, Toileting,Bathing,Toilet Transfers,Shower Transfers, Activity Tolerance Progress Towards Goals Progressing Toward Goals Assessment Summary Pt presents as a high complexity evaluation s/p admit for new onset L basal ganglia infarct. Pt presents with weakness to the RUE, RLE and R facial droop. Pt appears highly motivated and emotionally stable to work on deficits. Pt is a great candidate for Acute Rehab services. Pt's was present throughout session and is also in agreement on Acute Rehab. Recommend d/c to Acute Rehab. Goals Self-Feeding Goal Independent Grooming Goal Independent Dressing Goal Independent Toileting Goal Independent Bathing Goal Independent Toilet Transfer Goal Independent Shower Transfer Goal Independent Days to Meet Goals 20 Frequency of Treatment Frequency Of Treatment Once a Day Treatment Plan OT Treatment Plan ADL Training,Functional Mobility,Neuromuscular Re- education,Therapeutic Exercises,Patient/Family Education,Discharge Planning Other Treatment Recommendations and Next RUE coordination/strength, Treatment Focus toileting Discharge Recommendations OT Discharge Recommendations Acute Rehab Transportation Needs at Discharge Private Vehicle
[2023-11-21 11:00] VITALS: BP 182/98; PULSE 74; RESP 18; TEMP 36.7; O2SAT 96
--- NOTE | 2023-11-21 12:34 | CM.DANOTE ---
Addendum entered by PETR Benton 11/21/23 16:18: Per Viral at [facility], able to accept pt tuesday. RN report number [phone]. no covid test needed. HIGH PRESSURE BOILER OPERATOR updated provider/RN. HIGH PRESSURE BOILER OPERATOR updated pt and spouse in room. Appreciative of the updates. Spouse can take pt whenever tomorrow. Spouse interested to see if he will have speech. Speech therapy order in, called number, no response. Likely will do eval with next meal. HIGH PRESSURE BOILER OPERATOR reported to pt and spouse. appreciative of update. P: dc tomorrow to [facility], early afternoon. spouse to transport. send clinicals/scripts when available. Original Note: DCP Assessment Note Pt is a 73yo M here following TIA. PCP [facility] HIGH PRESSURE BOILER OPERATOR reviewed EMR. PT/OT rec acute rehab. Hospitalist cleared for dc when acute rehab arranged. HIGH PRESSURE BOILER OPERATOR met with pt and spouse in room briefly. Pt is normally indep/active/otherwise healthy at baseline. In agreement with acute rehab. preference [facility]. spouse can drive pt there. HIGH PRESSURE BOILER OPERATOR answered questions to best of ability. GISELLE Hill sent initial referral information to [facility]. HIGH PRESSURE BOILER OPERATOR sent OT eval when ready. HIGH PRESSURE BOILER OPERATOR spoke with Viral on the phone from [facility]- have been availability pending official acceptance. P: anticipate acceptance at [facility], likely today vs tomorrow. CM team will get COVID test/send dc information when available. PETR Benton Discharge Planning/Care Management CM Discharge Assessment Start: 11/21/23 12:30 Freq: Status: Active Protocol: Document 11/21/23 12:31 (Rec: 11/21/23 12:33 [id number]) Discharge Planning Assessment Assigned Assistant Drafter PETR Ch DPOA/Assigned Designee Name alayna Mosshilaryflakito Contact Information [phone] Advance Directives? Yes Advance Directives on File Yes History Provided By Patient Prior Living Arrangements House Household Members spouse Type of transporation used prior to Drives own vehicle admit Independent with ADL's Yes Is patient alert and oriented? Yes Comment acute rehab Comment pending acceptance at [facility] Transportation Arrangement family in [place]OV Additional Comment [facility] acute rehab reviewing Whiteboard Updated in Patient Room with Yes name and ext. # of Assistant Drafter Review Status In Process Please Provide Date Initial DC 11/21/23 Assessment Was Performed Next Review Type Continued Stay Review
[2023-11-21 15:00] VITALS: BP 186/92; PULSE 64; RESP 16; TEMP 36.6; O2SAT 95
--- NOTE | 2023-11-21 15:47 | PT-IP ANOTE ---
PT checks on pt this afternoon. He is sitting up in chair with washcloth under right fingers. His speech is much more slurred than PT assessment last treatment date. He presents with no active extension in right fingers compared to PT exam last date and OT exam note at 1040 this date. Pt presents with less active movement in right shoulder and elbow and can only lift arm about 60 deg actively. RLE is also much weaker than last date with no active DF or great toe extension and weak hip and knee flexion. Right knee extension is spared and is about 3/5 this afternoon. Increased droop right side of mouth. BP and HR in LUE remain high at 187/97, 73. PT will attempt to talk with attending.
--- NOTE | 2023-11-21 16:04 | DI.CT.S_ITS ---
PROCEDURE: CT HEAD/BRAIN WO CON INDICATIONS: Neuro Symptoms worsening. TECHNIQUE: Noncontrast 4.5 mm thick angled axial sections acquired from the foramen magnum to the vertex, with coronal and sagittal reformats. For radiation dose reduction, the following was used: automated exposure control, adjustment of mA and/or kV according to patient size. COMPARISON: [facility], MR, MR HEAD/BRAIN WO CON, 11/20/2023, 7:29. FINDINGS: Image quality: Diagnostic. CSF spaces: Basal cisterns are patent. No extra-axial fluid collections. The ventricles are symmetric in size and shape. Brain: Hypoattenuation within the left posterior basal ganglia in the region of infarct seen on prior MRI. No intracranial bleeds or masses. There is cerebral volume loss for age, with resultant ventricular and sulcal prominence. There are periventricular and deep white matter chronic small vessel ischemic changes. There is intracranial internal carotid artery atherosclerosis. Skull and face: Calvarium and visualized facial bones appear intact, without suspicious lesions. Sinuses: Visualized sinuses and mastoids are clear. IMPRESSION: Hypoattenuation seen within the left posterior basal ganglia, in the region of infarct seen on prior MRI. No findings concerning for hemorrhagic conversion. No new acute intracranial pathology is identified Dictated by: Julius Briggs M.D. on 11/21/2023 at 16:32 Approved by: Julius Briggs M.D. on 11/21/2023 at 16:33
--- NOTE | 2023-11-21 16:27 | ST.IPCSEOM ---
Visit Care Team Role Provider Type Moreno Gamble DO Primary Care Provider Non-Staff Specialty: Family Practice Address: [address] [place] [address], [id number] Email: Alis Lynch MD Emergency Provider Physician Referring Provider Specialty: Emergency Medicine Address: [address] [place] [address], [id number] Email: [email or web address] Cipriano Brasher MD Admit Provider Physician Attending Provider Specialty: Internal Medicine Address: [address] [place] [address], [facility] Email: [email or web address] Current Diagnoses Transient cerebral ischemic attack, unspecified (11/20/23) Essential (primary) hypertension (11/20/23) Speech-Language Pathology Swallow Evaluation AVIONICS REPAIR TECHNICIAN Clinical Swallow Evaluation Start: 11/21/23 16:17 Freq: Status: Active Protocol: Document 11/21/23 16:17 MA (Rec: 11/21/23 16:27 MA [id number]) Clinical Swallow Evaluation Session Time Visit Start Time 15:50 Visit Stop Time 16:20 Total Visit Minutes 30 Referral Referring Provider Cipriano Brasher MD Reason for Referral CVA Setting Assessment Location Acute Care Visit Type Note Type Initial evaluation Patient Information Identification Type Name History Per H&P: 73 y/o with PMH of HTN, developed sudden onset of rigt arm and leg weakness, 12 hours ago, went to [facility], had non-diagnostic CT head and discharged home but contiue to have right side numb and weak again. At presentation to ED at [place] he has right facial droop , right arm > Rt leg weakness. Pt referred for ST d/t possible CVA and to assess speech/cog/swallow. Subjective Observations Pt sitting upright in chair in room with friends present. He was awake, alert, oriented x3 and compliant with evaluation . Reported by Patient/Caregiver Pain/Discomfort No Current Diet Regular (IDDSI 7) Baseline Feeding Method Independent in self-feeding The IDDSI Framework Protocol: IDDSI.1 Objective Assessment Mental Status Alert,Responsive,Cooperative Comment Oral motor exam revealed natural dentition, good condition. Slight right facial droop. Mild right sided reduced lingual/labial strength. Pt with slight slurred speech secondary to dysarthria. Food and Liquid Trials Position During Assessment Upright (90 degrees) Liquids Trialed Thin (IDDSI 0) Solid Trials Soft & Bite-sized (IDDSI 6), Regular (IDDSI 7) Administration Type Self-feeding Oral Impairment Within functional limits Oral Phase Comments Pt presented with sunny crackers and chewy bar with about 6 oz of thin water via straw. For solids Pt demonstrated adequate rate and bite size, prolonged mastication however adequate bolus formation and control, timely ap transport, minimal oral stasis. For liquids Pt demonstrated adequate sip size and rate, good oral acceptance and containment. Pharyngeal Impairment Within functional limits Pharyngeal Phase Comments Pt with no overt s/s of aspiration, specifically coughing/choking with clear vocal quality post swallows. Fatigue/Endurance Endurance WNL The IDDSI Framework Protocol: IDDSI.1 Findings Swallowing Function Within functional limits Severity of Swallow Impairment Within functional limits Prognosis Good Based on Cognitive status,Family support Impact on Safety and Functioning No limitations Recommendations Instrumental Assessment No Swallowing Treatment No Recommended Solids Regular (IDDSI 7) Recommended Liquids Thin (IDDSI 0) Other Recommendations Pt presents with WFL swallow function, however mild dysarthria resulting in slight slurred speech, however 100% intelligible. He may benefit from inpatient rehab to learn and practice oral motor exercises. ST recommends regular solids and thin liquids at this time, however if any change in status ST recommends re-referral for swallow evaluation. Safety Precautions/Swallowing Remain upright (90 degrees) Recommendations during all oral intake,Upright position at least 30 minutes after meals,Small bites and sips when eating,Slow rate; swallow between bites, Alternate liquids and solids Medication Recommendations As Tolerated Discharge Recommendations Inpatient rehab facility Education Patient/Caregiver Education Described results of evaluation,Patient expressed understanding of evaluation
--- NOTE | 2023-11-21 19:32 | PC.NURSE ---
Patients NIH scale a 5 at 1400 and 4 this morning. He was a two person assist to ambulate to the bathroom with the walker and gaitbelt. He has some drift in his r.arm and leg. He is alert and oriented x4, no visiual loss. Patient back to bed and resting comfortably. He will be going to acute rehab tomorrow. He was emotional this morning but had some company this evening and is in better spirits now.
[2023-11-21 20:30] VITALS: BP 183/91; PULSE 68; RESP 19; TEMP 36.4; O2SAT 95
[2023-11-21] MEDS: SODIUM CHLORIDE 0.9% FLUSH 10 ML IV (21:03)
--- NOTE | 2023-11-21 23:25 | PC.NURSE ---
Patient is alert and oriented. Speech much more slurred tonight but still understandable. Right facial droop prominent. Right UE is now flaccid but no numbness. Right LE remains weak. NIH = 8. Day RN, Lilia, reported patient's neurological status had declined and MD had been made aware and CT was ordered and had shown no acute changes. Breath sounds CTA with RA sat of 95%. HRR w/telemetry reading of SR w/1st degree AVB. BP remains elevated at 183/91. Denied nausea. BT present and abdomen is soft. Voiding on BSC and denied any dysuria. Is able to transfer onto BS with 1-2 assist + gait belt but has difficulty with mobility related to right extremity weakness/flaccidity. Is able to move himself in bed. Denied pain. Wearing bilateral calf SCD's. Fall risk score is high and bed alarm is activated. rooming in.
[2023-11-22 00:22] VITALS: BP 168/96; PULSE 66; RESP 18; TEMP 36.8; O2SAT 97
[2023-11-22 04:38] VITALS: BP 182/98; PULSE 71; RESP 19; TEMP 36.4; O2SAT 97
[2023-11-22 08:26] VITALS: BP 166/82; PULSE 73; RESP 17; TEMP 36.6; O2SAT 98
--- NOTE | 2023-11-22 08:56 | P.DS_ITS ---
History of Present Illness History of Present Illness Chief complaint: Possible Stroke Narrative: From night doctor: 73 y/o with PMH of HTN, developed sudden onset of rigt arm and leg weakness, 12 hours ago, went to [facility], had non-diagnostic CT head and discharged home but contiue to have right side numb and weak again. At presentation to ED at [facility] he has right facial droop , right arm > Rt leg weakness. Placed in observation S: The patient is fairly healthy at baseline other than hypertension. He takes hydrochlorothiazide for this. The patient was admitted with right-sided hemiparesis. An MRI was completed in the emergency department and did reveal a left basal ganglia infarct. The patient was no history of TIA or stroke. He notes his blood pressures are usually between 130 and 140 systolic and under 90 diastolic. He does not take aspirin chronically, and has a great resistance to a statin due to thinks he is heard about these medications causing untoward side effects. He does have mild weakness of the right arm and leg upon transfer to the floor his well as a right-sided facial droop. His speech is normal. He denies a headache. He was hypertensive at 198 over 90. He does not smoke. Discharge Providers Provider Date of admission: 11/20/23 06:45 Discharge Date: 11/22/23 Primary care physician: Moreno Gamble DO Consults: 11/20/23 07:39 Consult to Physical Therapy Evaluate & Treat Comment: Physician Instructions: Evaluate and Treat 11/20/23 07:40 Consult to Occupational Therapy Evaluate & Treat Comment: Physician Instructions: Evaluate and treat Consult to Speech Therapy Evaluate & Treat Comment: Physician Instructions: Evaluate and treat 11/20/23 15:21 Consult to Discharge Planning Routine Comment: Consult to Occupational Therapy Evaluate & Treat Comment: Physician Instructions: Evaluate and treat Consult to Physical Therapy Evaluate & Treat Comment: Physician Instructions: Evaluate and Treat Consult to Speech Therapy Evaluate & Treat Comment: Physician Instructions: Evaluate and treat Discharge provider: Duncan Ng MD Summary Hospital Course Discharge Diagnosis: 1. 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 2. Hypertensive urgency, present on admission and active. 3. HLD, present on admission and active. 4. Hypokalemia, new and active. Hospital Course: The patient was admitted with right-sided weakness. He was outside of the window for thrombolytics. Initial imaging indicated a left basal ganglia lacunar stroke. The patient had right arm weakness greater than right leg weakness and a facial droop with slurred speech. He did pass a speech evaluation. The patient had isolating symptoms of the severity of weakness in the right arm. A repeat CT scan on 11/20 revealed a completed lacunar infarct with no other unexpected findings. MRI also confirmed the stroke. Echo was unremarkable, he was in normal sinus rhythm. His lipid profile was abnormal. The patient was reluctant to take a statin and was advised of the risks and benefits of this medication but did decline while in the hospital. He was hypertensive initially with a systolic of 200, this improved with values in the 170 range. He does have a history of hypertension with systolic range of 130- 155. He was felt to be stable for transfer to inpatient rehab on October 22. He was placed on dual antiplatelet therapy for 21 days and then can be treated with monotherapy. Status at Discharge Cognitive/behavioral status at discharge: oriented Functional status at discharge: uses cane/walker Overall status at discharge: patient is not back to baseline Time Spent with Patient Time spent: Greater than 30 minutes Exam Vital Signs (past 8 hours): - 11/22/23 04:38 11/22/23 08:26 Temperature 97.6 F Pulse Rate 71 Respiratory Rate 19 Blood Pressure 182/98 H Pulse Oximetry 97 Oxygen Flow Rate 0 0 Oxygen Delivery Method Room Air Oxygen Flow Rate 0 Narrative Exam Narrative: NAD, alert and oriented. Fluent speech. Lungs are clear, normal rate and effort. Heart is regular, no murmur gallop or rub. Abdomen is soft, non distended. Extremities are free of edema. Right arm weakness greater then right leg. Objective ECG Impression: NSR Imaging Multiple studies:: Radiologist's impression: CT 11/20: Hypoattenuation seen within the left posterior basal ganglia, in the region of infarct seen on prior MRI. No findings concerning for hemorrhagic conversion. No new acute intracranial pathology is identified MRI brain 11/19: 1. Small area diffusion restriction in the left posterior basal ganglia/periventricular region is consistent with recent infarct. No significant mass effect or hemorrhagic conversion. 2. [id number] chronic likely vascular ischemic changes and generalized parenchymal volume loss. ECHO 11/19: The patient was in sinus rhythm with heart rates between 68-80 bpm during the exam. The left ventricle is normal in size and wall thickness. The left ventricular ejection fraction is normal. The ejection fraction is estimated to be 60-65%. The right ventricle is normal size. The right ventricular systolic function is normal. No significant valvular pathology seen. The IVC is of normal diameter and collapses greater than 50% with a sniff. This suggests a low right atrial pressure of 3 mm Hg. Labs 11/20/23 08:02 11/21/23 05:25 [facility] Social History household members: spouse Smoking Status: Never smoker alcohol intake: current Discharge Assessment & Plan Assessment and Plan Assessment: 1. 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 2. Hypertensive urgency, present on admission and active. 3. HLD, present on admission and active. 4. Hypokalemia, new and active. Plan of Treatment: Transfer to inpatient rehab, [facility]. Discharge Plan Discharge Plan Patient Disposition: er Inpatient Rehab Under care of provider: [facility] Inpatient Rehab Provider Discharge Comment: Stable for discharge to inpatient rehab. Discharge orders & Medications Discharge Orders: Discharge (Order); Ordered 11/22/23 Ordered By: Duncan Ng Prescriptions: New atorvastatin 20 mg Tablet 80 mg PO BEDTIME Qty: 120 0RF clopidogrel 75 mg Tablet 75 mg PO DAILY Qty: 30 0RF aspirin 81 mg Tablet,Delayed Release (Dr/Ec) 81 mg PO DAILY Qty: 30 0RF Continued lisinopril-hydrochlorothiazide 10-12.5 mg tablet 1 tab PO DAILY Medication counseling provided by Pharmacist: No Follow up/Referrals: Moreno Gamble DO [Primary Care Provider] - Discharge Health Status Multidrug resistant organism: No MDRO Diet/Activity/Treatments Diet: Regular Liquid consistency: Normal/Thin Discharge Data Primary Care Provider: Moreno Gamble Quality VTE Deep Vein Thrombosis/Pulmonary Embolism Present on Admission: No
[2023-11-22] MEDS: ASPIRIN EC 81 MG TABLET PO (09:01)
[2023-11-22] MEDS: ENOXAPARIN 40 MG/0.4 ML SYRINGE SUBCUT (09:01)
[2023-11-22] MEDS: CLOPIDOGREL 75 MG TABLET PO (09:01)
--- NOTE | 2023-11-22 09:15 | CM.DPNOTE ---
DCP Note [employer] WORKER reviewed EMR. Per Viral at [facility], able to accept pt today. Need dc sum and meds faxed at in. hopeful for 2:30pm arrival. Viral confirmed no COVID test needed CC Liz kindly agreed to send dc sum, med list, and speech eval to [facility] when available. [employer] WORKER gave signed med list to CC Liz. [employer] WORKER updated [employer]. Gave RN report number ([phone]) to RN. W[employer] WORKER met with pt and spouse in room. Eager and excited to dc to [facility]. gave spouse brochure with copy of address. Very appreciative. Just need help getting in an out of van. W[employer] MET[employer] WORKER answered questions to best of ability. P: DC today to [facility]. transport via spouse around 1:30pm. CM team will continue to follow as needed PETR Benton
--- NOTE | 2023-11-22 10:30 | PT.IPTN ---
Current Diagnoses Transient cerebral ischemic attack, unspecified (11/20/23) Essential (primary) hypertension (11/20/23) Physical Therapy Treatment Note M2 PT-IP Current Condition Start: 11/20/23 08:27 Freq: NEEDED Status: Active Protocol: Document 11/20/23 10:53 JG (Rec: 11/20/23 12:29 JG [id number]) Physical Therapy Current Condition Current Condition Evaluation Date 11/20/23 Treatment Diagnosis L posterior basal ganglia/ periventricular infarct M3 PT-IP Subjective Start: 11/20/23 08:27 Freq: NEEDED Status: Active Protocol: Document 11/22/23 10:30 AB (Rec: 11/22/23 12:15 AB [id number]) Subjective Physical Therapy Visit Type Type Treatment Note Visit Start Time 10:30 Visit Stop Time 11:05 Number of PSYCHOLOGICAL AIDE Visits 0 Physical Therapy Visit Comments Patient Comments agreeable to do PT M4 PT-IP Mobility and Gait Start: 11/20/23 08:27 Freq: NEEDED Status: Active Protocol: Document 11/22/23 10:30 AB (Rec: 11/22/23 12:15 AB [id number]) PT-Transfer Assessment Sit to and From Stand Sit to and from Stand Moderate Assistance,1 Person Assistance,Use of Upper Extremities Equipment Transfer Assistive Device Gait Belt,Front Wheeled Walker ,Vasquez Walker Orthotic/Prosthetic Devices or Brace: No Comments Mobility Comments pt sitting on the chair and spouse in room. pt agreeable to do PT. pt completed sit to stand from chair mod A and cues. pt can be impulsive. pt with RUE weakness/ flaccidity . pt with increase lateral L sided leaning with sit to stand and standing and cued to correct. pt used FWW on L side for support. pt sat back down. educated pt on standing balance/ steadiness and use of RLE during standing . pt completed sit to stand again mod A and max cues. static standing balance using L side of FWW for support initial max A and cues : standing with perturbations mod A and cues; marching in place max A and max cues. pt again is impulsive and needs cues for RLE control and quads activation. pt sat back on chair. pt agreed to use hemiwalker. educated pt on how to use hemiwalker. pt completed sit to stand mod A and cues and ambulated in room using hemiwalker ~ 15 ft max A and max cues. (+) R foot drop and needed assist for RLE propulsion and stabilization with (+) buckling noted on RLE requiring max A to stabilze. pt sat back on chair. sit <>stand x 4 on the chair requiring mod A and max cues for body position, use of RLE to push up to stand and midline position of body and also use of RUE for sit to tand. positioned pt back on chair. call light and table placed within reach. Gait Assessment Gait Gait Assistance Required: Moderate Assistance,Maximum Assistance,1 Person Assist Distance (Feet) 15 Able to Maintain Weight Bearing Status Yes During Gait Assistive Devices Assistive Device Gait Belt,Vasquez Walker Orthotic/Prosthetic Devices or Brace: No Gait Deviations General Gait Pattern Ataxic,Decreased Stride Length ,Decreased Feet Clearance Factors Limiting Gait Function Factors Limiting Gait Function Abnormal Tonal Influences, Decreased Activity Tolerance, Decreased Strength,Difficulty Following Directions, Incoordination,Limited Range of Motion,Poor Balance,Poor Safety Awareness M5 PT-IP Objective Assessments Start: 11/20/23 08:27 Freq: NEEDED Status: Active Protocol: Document 11/20/23 10:53 (Rec: 11/20/23 12:29 [id number]) Orientation Orientation/Cognition Level of Alertness Alert Orientation Name,Age,Birthday,Month,Date, Year,Day of Week,Place, Situation Language Function Ability No Deficits Noted Safety Awareness Decreased Safety Awareness Memory Description No Deficits Noted Comments Pt answered date incorrectly ( November 23) Gross Range of Motion Upper Extremity ROM Assessment Right Impaired Impairments Right hand appears to rest in flexion and may have decresased finger extension, OT to see pt tomorrow Lower Extremity ROM Assessment Right Impaired Impairments May lack full great toe extension mildly Strength Upper Extremity Strength Assessment Within Functional Limits Shoulder R 4-/5 L 4+/5 Elbow R 4-/5 L 4+/5 Lower Extremity Strength Assessment Within Functional Limits Knee R 4-/5 L 4+/5 Ankle R 4-/5 L 5/5 Comments Strength Comments Pt had global weakness in R U& L extremities, great toe extension left 4+/5 on the left and 4-/5 on the right. Coordination Assessment Gross Coordination Gross Coordination Impaired Assessment Finger to Nose Test Severe Impairment Pronation/Supination Test Severe Impairment Foot Tapping Test Minimal Impairment Heel on Kimball Test Minimal Impairment Coordination Comments Coordination testing is weaker on R>L on all assessment activities Sensation Assessment Sensation Gross Sensation WNL Light Touch Intact Muscle Tone Muscle Tone WNL Yes Other Assessments Other Other Assessments Need more time to assess: initially, right anterior tib appeared less defined than the left M6 PT-IP Treatment Start: 11/20/23 08:27 Freq: NEEDED Status: Active Protocol: Document 11/22/23 10:30 AB (Rec: 11/22/23 12:15 AB [id number]) Physical Therapy Treatment Education Education Provided Safety M7 PT-IP Assessment and Plan Start: 11/20/23 08:27 Freq: NEEDED Status: Active Protocol: Document 11/22/23 10:30 AB (Rec: 11/22/23 12:15 AB [id number]) PT Summary Assessment and Plan Potential Rehabilitation Potential Fair Status of Condition at Evaluation Evolving Summary Impairments Pain,ROM,Strength,Balance, Coordination,Sensation,Tone, Cognition,Bed Mobility, Transfers,Gait,Activity Tolerance Assessment Summary pt requiring max A for ambulation using hemiwalker max A and max cues. pt is impulsive and requires cues with all tasks. (+) R knee buckling during standing and ambulation and requried cues for R quads activation. pt will benefit from acute rehab. Goals Transfer Goal Independent Gait Goal Independent,Vasquez Walker Gait Distance 50 Other Goals improve transfers and ambulation using LRAD ~ 150 ft SBA Days to Meet Goals 10 Frequency of Treatment Frequency Of Treatment Once a Day Treatment Plan Physical Therapy Treatment Plan Transfer Training,Gait Training,Therapeutic Exercise, Balance Retraining,Discharge Planning,Hot or Cold Pack, Neuromuscular Re-ed, Coordination Retraining,Manual Therapy Recommendations To Nursing Amount of Assist Needed 1 Person Assist Discharge Recommendations PT Discharge Recommendations Acute Rehab Transportation Needs at Discharge Private Vehicle,Wheelchair/ Cabulance
--- NOTE | 2023-11-22 11:42 | PC.NURSE ---
Called report to Frederick KRISHNA at [facility] and gave full Pt status. No further questions. Pt will be ready to discharge to SNF with Spouse and all belongings.
[2023-11-22 11:43] VITALS: BP 138/80; PULSE 77; RESP 15; TEMP 36.6; O2SAT 98
--- NOTE | 2023-11-22 14:12 | PC.NURSE ---
Pt out via w/c -assisted into passenger seat of his car, with Spouse and all belongings.
== END 2023-11-22 14:13 | DRG 65 ==
LOC: ED 05:53 → AC 06:53
PROVIDERS: Pharmacist Pharmacist Clinician (PhC)/ Clinical Pharmacy Specialist; Admitting Provider Internal Medicine; Emergency Provider Emergency Medicine; PCP Family Medicine; Referring Provider Emergency Medicine; Visit Provider Internal Medicine
DX: I63.9 Cerebral infarction, unspecified (principal); G81.91 Hemiplegia, unspecified affecting right dominant side; R29.810 Facial weakness; I10 Essential (primary) hypertension; I16.0 Hypertensive urgency; E78.5 Hyperlipidemia, unspecified; R47.81 Slurred speech; E87.6 Hypokalemia; R29.705 NIHSS score 5; R29.710 NIHSS score 10; Z79.02 Long term (current) use of antithrombotics/antiplatelets
CPT/HCPCS: 36415; 70450; 70551; 80048; 80053; 80061; 83036; 83735; 84443; 85025; 85610; 92610; 93005; 93010; 93306; 97116; 97162; 97167; 97530; 97535; 99284; J1650